=== PATIENT | female | born 2000 ===

== ENCOUNTER 2019-10-13 19:05 | Emergency (ER) | payer OTHER ==
--- NOTE | 2019-10-13 20:45 | NUR ---
patient brought back into room, alert, oriented. Declines needs. Patient declines needing to speak with medical staff or emergent psychiatric staff. Patient has support.
== END 2019-10-13 21:02 | disposition left against medical advice (07) ==
LOC: ED 20:51
DX: R45.851 Suicidal ideations (principal); Z53.21 Procedure and treatment not carried out due to patient leaving prior to being seen by health care provider